=== PATIENT | male | born 2000 | race Caucasian/White ===

== ENCOUNTER 2022-02-08 16:16 | Emergency (ER) | payer SELFPAY ==
[2022-02-08 16:15] VITALS: BP 116/52; PULSE 120; RESP 16; TEMP 37.4; O2SAT 98; BMI 23.5; BMI 24.3
[2022-02-08 16:30] VITALS: BP 123/53; PULSE 128; O2SAT 97
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
[2022-02-08 17:00] VITALS: BP 118/50; PULSE 126; O2SAT 94
--- NOTE | 2022-02-08 17:10 | PC.NURSE ---
pt to rad
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
[2022-02-08 18:03] VITALS: BP 123/74; PULSE 96; RESP 16; TEMP 36.6; O2SAT 93
== END 2022-02-08 18:04 | disposition home or self-care (01) ==
PROVIDERS: Emergency Provider Emergency Medicine
DX: S50.812A Abrasion of left forearm, initial encounter (principal); V89.2XXA Person injured in unspecified motor-vehicle accident, traffic, initial encounter
CPT/HCPCS: 71046; 99283